=== PATIENT | female | born 1960 | race Caucasian/White ===

== ENCOUNTER → 2020-01-27 | Outpatient (CLI) | payer OTHER ==
[~2020-01-27] MED LIST: ASCO-184 PO; ASPI1TAB31 PO; ASPI1TAB51 PO; CEPH-368 PO; CEPH750C9 PO; CHOL100012 PO; CYCL-259 PO; DIAZ5TAB PO; ESTR1TAB6 PO; GABA300C10 PO; GLUC1TAB27 PO; GLUC1TAB53 PO; HYDR-3237 PO; LOSA1TAB25 PO; MELA1TAB8 PO; METH750T87 PO; NAPR220C62 PO; OXYC-307 PO; OXYC-432 PO; SENN1TAB94 PO; TRAM50TA2 PO; TRIA10.8 NS; TURM500C7 PO
== END | disposition home or self-care (01) ==
LOC: STAR 10:32
PROVIDERS: ATTEND Physician Assistant Surgical
DX: Z01.818 Encounter for other preprocedural examination (principal); R94.31 Abnormal electrocardiogram [ECG] [EKG]
CPT/HCPCS: 93005

== ENCOUNTER → 2020-12-02 | Outpatient (CLI) | payer OTHER ==
[~2020-12-02] MED LIST changes: -CYCL-259 PO; +CYCL10TA2 PO; +OMNIPAQUE 350 MG/ML, 100ML BOTTLE ONE; -OXYC-307 PO; +OXYC-380 PO; -OXYC-432 PO; +OXYC1TAB18 PO
== END | disposition home or self-care (01) ==
LOC: CFH 10:43
PROVIDERS: ATTEND Nurse Practitioner Family
DX: R10.31 Right lower quadrant pain (principal); I10 Essential (primary) hypertension; R19.7 Diarrhea, unspecified
CPT/HCPCS: 74177; Q9967